=== PATIENT | male | born 1925 | race Caucasian/White ===

== ENCOUNTER → 2016-10-25 | Outpatient (CLI) | payer MEDICARE, BC ==
[~2016-10-25] MED LIST: ASPIRIN 81M81 MG/TA2 PO; CASODEX 50MG TA50 MG PO; CIPRO 500MG TA500 MG PO; FLOMAX 0.40.4 MG/CAP PO; K-DUR 10 MEQ T10 MEQ PO; LASIX 20MG TABL20 MG PO; LUTEIN20 M1; MS CONTIN 115 MG/TAB PO; NEURONTIN100 MG/CAP PO; NORCO 325 MG-51 TAB PO; OMEGA-31 SGL PO; OMNICEF 300MG300 MG PO; PHARMASSURE ZIN50 MG PO; PREDNISONE 5MG5 MG PO; VITAMIN C500 MG PO; VITAMIND3 5000; VITAMINE200 PO
== END ==
LOC: COL.LAB 14:06
DX: C61 Malignant neoplasm of prostate (principal)
CPT/HCPCS: G0103

== ENCOUNTER 2017-02-12 08:08 | Emergency (ER) | payer MEDICARE, BC ==
[~2017-02-12] VITALS: Ht 177.8 cm; Wt 90.9 kg
[2017-02-12] MEDS ORDERED: FLOMAX 0.40.4 MG/CAP PO (08:34)
[2017-02-12] MEDS ORDERED: LASIX 20MG TABL20 MG PO (08:34)
[2017-02-12] MEDS ORDERED: K-DUR 10 MEQ T10 MEQ PO (08:35)
[2017-02-12] MEDS ORDERED: NEURONTIN100 MG/CAP PO (08:35)
[2017-02-12] MEDS ORDERED: PHARMASSURE ZIN50 MG PO (08:35)
[2017-02-12] MEDS ORDERED: VITAMINE200 PO ×2 (08:36→09:36)
[2017-02-12] MEDS ORDERED: LUTEIN20 M1 (08:36)
[2017-02-12] MEDS ORDERED: VITAMIND3 5000 (08:40)
[2017-02-12] MEDS ORDERED: VITAMIN C500 MG PO (08:40)
[2017-02-12] MEDS ORDERED: ASPIRIN 81M81 MG/TA2 PO (08:41)
[2017-02-12] MEDS ORDERED: OMEGA-31 SGL PO (08:41)
[2017-02-12] MEDS ORDERED: PREDNISONE 5MG5 MG PO (08:42)
[2017-02-12] MEDS ORDERED: CASODEX 50MG TA50 MG PO (08:42)
[2017-02-12 08:56] LABS: BASO % 0.2 % (0.0-2.0); EOS # 0.1 (0.0-0.7); EOS % 1.1 % (0-4.0); GRAN # 7.8 (1.4-6.5); GRAN % 78.8 % (42.2-75.2); LYMPH # 1.2 (1.2-3.4); LYMPH % 11.8 % (20.0-51.0); MEAN CELL VOLUME 88 fl (80.0-100.0); MEAN CORPUSCULAR HGB CONC 32 g/dl (33.0-37.0); MEAN PLATELET VOLUME 10.1 fl (7.4-10.4); MONO # 0.8 (0.1-0.6); MONO % 7.6 % (1.7-9.3); PLATELET COUNT 170 K/mm3 (130-400); RED BLOOD COUNT 4.15 M/mm3 (4.20-5.60); REDCELL DISTRIBUTION WIDTH-CV 15.3 % (11.5-14.5); WHITE BLOOD COUNT 9.9 K/mm3 (4.8-10.8)
[2017-02-12 08:59] LABS: HEMATOCRIT 36.3 % (42.0-52.0); HEMOGLOBIN 11.6 g/dl (13.5-18.0); MEAN CORPUSCULAR HEMOGLOBIN 28 pg (27.0-31.0)
[2017-02-12 09:06] LABS: ADJUSTED CALCIUM 8.8 mg/dL (8.4-10.2); ALBUMIN 3.8 gm/dL (3.5-5.0); BILIRUBIN,TOTAL 0.6 mg/dL (0.0-1.0); CALCIUM 8.6 mg/dL (8.4-10.2); CREATININE, serum 1.02 mg/dL (0.66-1.25)
[2017-02-12 09:18] LABS: PH 6 (5-8); SQUAMOUS EPITHELIAL None Seen /hpf; URINE APPEARANCE Turbid; URINE BACTERIA Rare /hpf; URINE BILIRUBIN Negative (NEGATIVE); URINE BLOOD 2+ (NEGATIVE); URINE COLOR Amber; URINE GLUCOSE Negative (NEGATIVE); URINE KETONE Negative (NEGATIVE); URINE RBC >50 /hpf; URINE UROBILINOGEN Negative (NEGATIVE)
[2017-02-12 09:19] LABS: URINE WBC >50 /hpf
[2017-02-12] MEDS ORDERED: NORCO 325 MG-51 TAB PO (09:34)
[2017-02-12] MEDS ORDERED: OMNICEF 300MG300 MG PO (09:43)
[2017-02-12 11:00] VITALS: BP 123/61; PULSE 78; TEMP 98.9
== END 2017-02-12 11:00 | disposition home or self-care (01) ==
LOC: COL.ER 08:08
PROVIDERS: Emergency Medicine
DX: R50.9 Fever, unspecified (principal); N39.0 Urinary tract infection, site not specified; I10 Essential (primary) hypertension; Z79.82 Long term (current) use of aspirin; Z85.46 Personal history of malignant neoplasm of prostate; Z90.79 Acquired absence of other genital organ(s); Z96.0 Presence of urogenital implants
CPT/HCPCS: J0696; J7030

== ENCOUNTER 2017-03-30 08:31 | Emergency (ER) | payer MEDICARE, BC ==
[~2017-03-30] VITALS: Ht 177.8 cm; Wt 84.1 kg
[~2017-03-30 08:31] MED LIST changes: -CIPRO 500MG TA500 MG PO; -MS CONTIN 115 MG/TAB PO
[2017-03-30 08:37] VITALS: TEMP 99
[2017-03-30 09:45] LABS: PH 6 (5-8); SQUAMOUS EPITHELIAL None Seen /hpf; URINE APPEARANCE Hazy; URINE BACTERIA None Seen /hpf; URINE BILIRUBIN Negative (NEGATIVE); URINE BLOOD 3+ (NEGATIVE); URINE COLOR Yellow; URINE GLUCOSE Negative (NEGATIVE); URINE KETONE Negative (NEGATIVE); URINE RBC >50 /hpf; URINE UROBILINOGEN Negative (NEGATIVE); URINE WBC >50 /hpf
[2017-03-30 10:01] LABS: HEMOGLOBIN 11.4 g/dl (13.5-18.0); MEAN CELL VOLUME 91 fl (80.0-100.0); MEAN CORPUSCULAR HEMOGLOBIN 29 pg (27.0-31.0); MEAN CORPUSCULAR HGB CONC 32 g/dl (33.0-37.0); MEAN PLATELET VOLUME 9.7 fl (7.4-10.4); PLATELET COUNT 137 K/mm3 (130-400); RED BLOOD COUNT 3.96 M/mm3 (4.20-5.60); REDCELL DISTRIBUTION WIDTH-CV 15.6 % (11.5-14.5); WHITE BLOOD COUNT 8.3 K/mm3 (4.8-10.8)
[2017-03-30 10:02] LABS: ADD PATHOLOGY DIFF REVIEW NO
[2017-03-30 10:11] LABS: ADJUSTED CALCIUM 8.4 mg/dL (8.4-10.2); BILIRUBIN,TOTAL 0.6 mg/dL (0.0-1.0); C-REACTIVE PROTEIN 0.6 mg/dL (0.0-0.9); CALCIUM 8.4 mg/dL (8.4-10.2); CREATININE, serum 1.07 mg/dL (0.66-1.25); POTASSIUM 4.1 mmol/L (3.4-5.0); TOTAL PROTEIN 6.9 gm/dL (6.4-8.2)
[2017-03-30 10:38] LABS: ANISOCYTOSIS 1+; BAND 16 % (0-10); BASOPHIL 1 % (0-2); MYELOCYTE 2 % (0-0); NEUTROPHILS 70 % (42.0-75.2); PLATELET ESTIMATE DECREASED (NORMAL); TOTAL CELLS COUNTED 100
[2017-03-30] MEDS ORDERED: MS CONTIN 115 MG/TAB PO (11:39)
[2017-03-30] MEDS ORDERED: CIPRO 500MG TA500 MG PO (12:19)
[2017-03-30 13:04] VITALS: BP 177/82; PULSE 101
== END 2017-03-30 13:06 | disposition home or self-care (01) ==
LOC: COL.ER 08:31
PROVIDERS: Physician Assistant
DX: R33.9 Retention of urine, unspecified (principal); Z85.46 Personal history of malignant neoplasm of prostate; Z96.0 Presence of urogenital implants; Z79.82 Long term (current) use of aspirin
CPT/HCPCS: J0696; J7030